=== PATIENT | male | born 1960 | race Caucasian/White ===

== ENCOUNTER → 2017-08-05 | Outpatient (CLI) | payer OTHER | LOC: BMCIMAGING 15:58 | PROVIDERS: ATTEND Podiatrist Foot & Ankle Surgery | DX: M19.071 Primary osteoarthritis, right ankle and foot (principal) ==

== ENCOUNTER → 2017-09-10 | Outpatient (CLI) | payer OTHER | LOC: BMCIMAGING 15:53 | PROVIDERS: ATTEND Internal Medicine Rheumatology | DX: M19.071 Primary osteoarthritis, right ankle and foot (principal); M19.072 Primary osteoarthritis, left ankle and foot; M19.041 Primary osteoarthritis, right hand; M19.042 Primary osteoarthritis, left hand; M77.31 Calcaneal spur, right foot; M77.32 Calcaneal spur, left foot ==